=== PATIENT | male | born 1995 | race Hispanic/Latino ===

== ENCOUNTER 2025-02-25 18:01 | Emergency (ER) | payer BC ==
[~2025-02-25] VITALS: Ht 190.5 cm; Wt 156.5 kg
[2025-02-25] MEDS: TRAMADOL HCL 50 MG TAB PO STA (18:42)
[2025-02-25] MEDS ORDERED: ULTRAM 50MG50 MG PO (19:04)
[2025-02-25 19:39] VITALS: PULSE 108; RESP 16; TEMP 98.8
[2025-02-25 19:41] VITALS: BP 149/93; PULSE 108; RESP 16; TEMP 98.8; O2SAT 97
== END 2025-02-25 19:40 | disposition home or self-care (01) ==
LOC: ER 18:05
DX: M25.561 Pain in right knee (principal); Y93.67 Activity, basketball; M92.521 Juvenile osteochondrosis of tibia tubercle, right leg
CPT/HCPCS: 99284